=== PATIENT | male | born 1970 | race American Indian/Alaskan Native ===

== ENCOUNTER 2017-11-15 23:36 | Emergency (ER) | payer SELFPAY | END 2017-11-16 00:10 | disposition left against medical advice (07) | LOC: ED 23:36 | DX: Z00.8 Encounter for other general examination (principal); Z53.21 Procedure and treatment not carried out due to patient leaving prior to being seen by health care provider ==

== ENCOUNTER 2018-08-08 01:51 | Emergency (ER) | payer SELFPAY ==
[2018-08-08 02:46] VITALS: BP 129/59
[2018-08-08] MEDS ORDERED: NACL 0.9% 1000 ML 1,000 ML IV ONE (02:46)
[2018-08-08 03:38] LABS: Hematocrit 50.7 % (35.5-45.6); Hemoglobin 17.2 gm/dl (11.8-15.2); Mean Corpuscular HGB Conc 34 % (32-34); Mean Corpuscular Hemoglobin 31 pg (28-32); Mean Corpuscular Volume 90 fl (84-94); Platelet Count 168 K/mm3 (140-440); Red Blood Count 5.63 M/mm3 (3.65-5.03); Red Cell Distribution Width 13.7 % (13.2-15.2)
[2018-08-08 04:09] LABS: BUN/Creatinine Ratio 19; Blood Urea Nitrogen 21 mg/dL (9-20); Calcium 8.4 mg/dL (8.4-10.2); Hemolysis Index 33
[2018-08-08 05:12] LABS: Bilirubin,Urine NEG (Negative); Blood,Urine NEG (Negative); Color,Urine Yellow (Yellow); Mucus,Urine FEW /HPF; Urobilinogen,Urine < 2.0 mg/dL (<2.0)
[2018-08-08 05:14] LABS: Band Neutrophils # (Manual) 0.1 K/mm3; Basophils % (Manual) 0 % (0.0-1.8); Total Cells Counted 100
[2018-08-08 05:15] LABS: Anisocytosis 1+; Platelet Estimate Consistent w Auto
== END 2018-08-08 06:13 | disposition left against medical advice (07) ==
LOC: ED 01:51
DX: R19.7 Diarrhea, unspecified (principal); Z53.21 Procedure and treatment not carried out due to patient leaving prior to being seen by health care provider
CPT/HCPCS: 36415; 80048; 81001; 85007; 85025

== ENCOUNTER 2020-12-28 03:22 | Emergency (ER) | payer SELFPAY | END 2020-12-28 03:23 | disposition left against medical advice (07) | LOC: ED 03:22 | DX: Z53.21 Procedure and treatment not carried out due to patient leaving prior to being seen by health care provider (principal) ==